=== PATIENT | female | born 1965 | race Hispanic/Latino ===

== ENCOUNTER 2017-10-19 07:18 | Emergency (ER) | payer OTHER ==
[2017-10-19 07:58] LABS: Bilirubin Small (Negative); Blood, Urine Small (Negative); Glucose, Urine (Dipstick) Negative (Negative); Leukocyte Moderate (Negative); Nitrite Positive (Negative); Protein, Urine (Dipstick) 100 mg/dL (Neg-Trace); pH, Urine 5.5 (5.0-9.0)
[2017-10-19 08:05] LABS: Clarity Hazy (Clear)
[2017-10-19 08:07] LABS: Specific Gravity, Urine 1.027 (1.002-1.036)
[2017-10-19 08:08] LABS: Bacteria/HPF 4+ HPF (None Seen); Hyaline Casts/LPF NONE SEEN LPF (0-3 Hyaline); Renal Epithelial None Seen HPF (0-3); Transitional Epithelial 0-3 HPF (0-3); Yeast-All Forms 2+ HPF (None Seen)
[2017-10-19 08:09] LABS: Pregnancy Test - Urine (BHCG) Negative (Negative); Pregu Control Background? CLEAR/WHITE (CLR/WHITE); Pregu Control Bar Appear? YES (CONTROL BAR); Specific Gravity 1.027 (1.002-1.036)
[2017-10-19 08:58] LABS: #Eosinphils 0.1 thou/uL (0.0-0.7); #Monocytes 0.3 thou/uL (0.11-0.59); #Neutrophils 7.3 thou/uL (1.40-6.50); %Basophils 0.1 % (0.0-1.0); %Eosinophils 1.6 % (0.0-10.0); %Lymphocytes 11.7 % (21.0-51.0); %Monocytes 3.5 % (0.0-10.0); %Neutrophils 83.2 % (42.0-75.0); Mean Corpuscular HGB CONC 33.9 g/dL (32.0-36.0); Mean Corpuscular Hemoglobin 30.7 pg (27.0-31.0); Mean Corpuscular Volume 90.8 fL (78.0-98.0); Mean Platelet Volume 7.5 fL (7.4-10.4); Platelet Count 186 thou/uL (130-400); RBC Distribution Width 12.6 % (11.5-14.5); Red Blood Cell (RBC) Count 4.23 mill/uL (4.20-5.40); White Blood Cell (WBC) Count 8.8 thou/uL (4.8-10.8)
[2017-10-19] MEDS ORDERED: cefTRIAXone\\ROCEPHIN 1 GM VIAL ONE (09:10)
[2017-10-19 09:23] LABS: CKMB 0.4 ng/mL (0-6.6); Troponin I Less than 0.010 ng/mL (< 0.028)
[2017-10-19 10:35] LABS: Anion Gap 15 mmol/L (10-20); BUN (Urea Nitrogen) 10 mg/dL (9.8-20.1); Calc. Creatinine Clearance 0 mL/min (70-130); Calcium 9.6 mg/dL (7.8-10.44); Carbon Dioxide 23 mmol/L (22-29); Chloride 103 mmol/L (98-107); Estimated GFR-MDRD Greater than 90; Glucose 255 mg/dL (70-105); Potassium 3.8 mmol/L (3.5-5.1); Sodium 137 mmol/L (136-145)
== END 2017-10-19 11:40 | disposition home or self-care (01) ==
LOC: ERS 07:18
DX: R31.9 Hematuria, unspecified (principal); R30.0 Dysuria; M54.9 Dorsalgia, unspecified; E11.65 Type 2 diabetes mellitus with hyperglycemia; J45.909 Unspecified asthma, uncomplicated; Z79.4 Long term (current) use of insulin
CPT/HCPCS: 36415; 80048; 81003; 81015; 81025; 82553; 84484; 85025; 87077; 87086; 96361; 96374; J0696

== ENCOUNTER 2017-10-21 11:33 | Outpatient (CLI) | payer OTHER | END 2017-10-21 11:34 | disposition home or self-care (01) | LOC: LABBT 11:33 | PROVIDERS: ATTEND Specialist | DX: Z01.812 Encounter for preprocedural laboratory examination (principal); K43.9 Ventral hernia without obstruction or gangrene ==

== ENCOUNTER 2017-10-22 07:51 | Day surgery (SDC) | payer OTHER ==
[2017-10-21 12:18] VITALS: BMI 45.0
[2017-10-22] MEDS ORDERED: Ketorolac Tromethamine 30 MG/ML VIAL ONE (08:45)
[2017-10-22] MEDS ORDERED: Sodium Chloride 0.9% 100 ML ONE (08:46)
[2017-10-22] MEDS ORDERED: CEFAZOLIN 1 GM VIAL ONE (08:46)
[2017-10-22] MEDS ORDERED: Insulin Regular 300 UNITS/3 ML VIAL ONE (09:04)
[2017-10-22] MEDS ORDERED: HYDROmorphone 0.5 MG/0.5 ML SYRINGE ONE ×2 (09:42→09:43)
[2017-10-22] MEDS ORDERED: Fentanyl 100 MCG/2 ML VIAL ONE ×3 (09:42→15:20)
[2017-10-22] MEDS ORDERED: Bupivacaine/Epinephrine 0.25% 30 ML VIAL ONE (09:43)
[2017-10-22] MEDS ORDERED: PHENYLEPHRINE-NS 100 MCG/ML 10 ML SYRINGE ONE (12:45)
[2017-10-22] MEDS ORDERED: Ondansetron HCl/PF 4 MG/2 ML Vial ONE (12:45)
[2017-10-22] MEDS ORDERED: diphenhydrAMINE 50 MG/ML VIAL ONE (12:45)
[2017-10-22] MEDS ORDERED: Metoclopramide HCl 10 MG/2 ML VIAL ONE (12:45)
[2017-10-22] MEDS ORDERED: PROPOFOL 200 MG/20 ML VIAL ONE (12:45)
[2017-10-22] MEDS ORDERED: ePHEDrine/0.9% NaCl/PF SYRINGE 50 mg/10 ml ONE (12:45)
[2017-10-22] MEDS ORDERED: Lidocaine 1% PF 5 ML VIAL ONE (12:45)
[2017-10-22] MEDS ORDERED: Glycopyrrolate 0.2 MG/ML 5 ML SYRINGE ONE (12:45)
[2017-10-22] MEDS ORDERED: Succinylcholine Chloride 20 MG/ML 10 ml SYRINGE FS ONE (12:45)
[2017-10-22] MEDS ORDERED: Morphine 4 MG/ML VIAL ONE (16:09)
[2017-10-22] MEDS ORDERED: Promethazine HCl 25 MG/ML VIAL ONE (17:26)
[2017-10-22] MEDS ORDERED: HYDROcodone/Acetaminophen 5/325 mg Tablet ONE (18:44)
--- NOTE | 2017-10-23 04:28 | OP ---
DATE OF PROCEDURE: 10/22/2017 PREOPERATIVE DIAGNOSES: 1. Ventral incisional hernia. 2. Morbid obesity. POSTOPERATIVE DIAGNOSES: 1. Ventral incisional hernia. 2. Morbid obesity. 3. Finding of 2 separate adjacent ventral incisional hernias. OPERATION PERFORMED: Robotic repair of 2 separate, adjacent ventral incisional hernias (total size o f defect is an 8 x 5 cm), using a 10 x 15 cm mesh patch. SURGEON: Kirit Matthews M.D. ANESTHESIA: General endotracheal. INDICATIONS: The patient is a morbidly obese 52-year-old female. Although I had recommende d weight loss prior to proceeding with surgery, due to concerns regarding her hernias, agreed to repa ir this although she has not lost weight. She understands the high risk of recurrence. DESCRIPTION OF OPERATION: Informed consent was obtained. The patient was taken to the operating pritesh m where general endotracheal anesthesia was obtained with the patient in supine position. Abdomen wa s prepped with ChloraPrep and draped in sterile fashion. Local anesthetic was infiltrated and a 12-m m right lateral abdominal incision was created through which a Veress needle was passed into the tracey toneal cavity and pneumoperitoneum established using carbon dioxide up to a pressure of 15 mmHg. A 1 2-mm trocar port was passed through this same incision. Laparoscopic camera was passed through this port. Under direct vision, I placed 2 additional 8 mm robotic ports, one in the right lower quadrant and one in the right upper quadrant. Examining the location of these, decided to try to place the r ight lower quadrant one further posterior on the abdomen due to concerns about the proximity of the p ort to her hernia. I therefore closed the skin on the anterior port site with a towel clip and place an 8 mm port posteriorly. Of note, the patient's short body habitus and morbid obesity makes it quite challenging to place port s in a fashion that give adequate distance between them and adequate laterality to approach the anter ior abdominal wall. There were dense adhesions to the anterior abdominal wall, worse on the right side of the abdomen luís n on the left. There were adhesions to the anterior abdomen, both in the obvious hernia defect super iorly and the hernia defect inferiorly. The adhesions were all carefully lysed with sharp dissection and electrocautery. The anterior abdominal wall was cleared of preperitoneal fat as well. I measured the two defects. The upper defect was about 4 x 4 cm. The lower defect appeared to be ab out 5 cm wide and was additionally a 4 cm. There was a bridge of viable fascia between these two are as. The upper hernia had a clear cut fascial defect with a hernia sac. The lower defect, while an o bvious hernia, did not have the neck of a hernia that we typically see. Nonetheless, I felt that bot h should be repaired in continuity. The hernias were closed using a running suture of #1 nonabsorbable Stratafix. This was run up and ba ck to produce to a double layer of suture. I obtained a 10 x 15 cm mesh patch and placed a couple of stay sutures of 0 Vicryl on this. It was t hen passed into the abdominal cavity. The two stay sutures were withdrawn through the midline abdomi nal wound and used to affix the mesh patch appropriately. There was difficulty during the operation with the port sliding out. I ended up having to replace th e camera port with a longer 12-mm balloon tipped port to keep it from coming out. I additionally had exchange the right lower quadrant port for an extra length robotic port. Even with the port placed as far posterior as possible, there was difficulty with the proximity of this port to the edge of the hernia defect and the mesh. The mesh was sewed circumferentially with a running suture of 3-0 Stratafix. I ended up using four s eparate sutures of the Stratafix and overlapped each one of them significantly. The mesh patch appea red to be well approximated circumferentially. I then placed 2 sutures of 3-0 Vicryl in the center o f the mesh patch to fix it to the anterior abdominal wall in this location. The fascial defect at the 12-mm port site was closed with 0 Vicryl suture using a GraNee needle. All ports and instruments removed under direct vision. Pneumoperitoneum was carefully evacuated. Quart er percent Marcaine with epinephrine was infiltrated at each port site. Skin edges approximated with 4-0 Monocryl subcuticular suture. Dermabond was placed externally. Due to her obesity, I did not f eel that an abdominal binder would help to provide support or compression on the abdominal wall. I t herefore did not place her on. She was taken to recovery room in stable condition. There have been negligible blood loss during the case and no complications.
== END 2017-10-22 19:05 | disposition home or self-care (01) ==
LOC: SDC 07:51
PROVIDERS: ATTEND Specialist
PROC: 0WUF4JZ Supplement Abdominal Wall with Synthetic Substitute, Percutaneous Endoscopic Approach (ICD-10-PCS; principal; 2017-10-22)
DX: K43.2 Incisional hernia without obstruction or gangrene (principal); E66.01 Morbid (severe) obesity due to excess calories; E11.9 Type 2 diabetes mellitus without complications; J44.9 Chronic obstructive pulmonary disease, unspecified; Z88.8 Allergy status to other drugs, medicaments and biological substances; Z88.5 Allergy status to narcotic agent; Z88.1 Allergy status to other antibiotic agents; Z79.899 Other long term (current) drug therapy; Z68.42 Body mass index [BMI] 45.0-49.9, adult
CPT/HCPCS: 36416; 96374; 96375; J0131; J0690; J1170; J1815; J1885; J2270; J2550; J3010; J7050

== ENCOUNTER 2018-07-17 09:44 | Outpatient (CLI) | payer OTHER ==
--- NOTE | 2018-07-17 11:17 | RAD ---
PA AND LATERAL VIEWS CHEST: Date: 07/17/18 HISTORY: Bronchitis, cough, flu. FINDINGS: The cardiomediastinum is normal. The lungs are well expanded without focal areas of consolidation, pn eumothoraces, or pleural effusions. There are degenerative changes in the spine. IMPRESSION: No radiographic evidence of acute cardiopulmonary process. POS: C
== END 2018-07-17 09:45 | disposition home or self-care (01) ==
LOC: BICRAD 09:44
PROVIDERS: ATTEND Family Medicine
DX: J40 Bronchitis, not specified as acute or chronic (principal)
CPT/HCPCS: 71046

== ENCOUNTER 2018-07-18 12:51 | Outpatient (CLI) | payer OTHER ==
--- NOTE | 2018-08-06 15:52 | MMO ---
Bilateral MAMMO Bilat Screen [facility]. CLINICAL HISTORY: Patient is 52 years old and is seen for screening. The patient has the following family history of breast cancer: paternal grandmother, great. The patient has no personal history of cancer. VIEWS: The views performed were: bilateral craniocaudal with tomosynthesis and bilateral mediolateral oblique with tomosynthesis. FILMS COMPARED: The present examination has been compared to prior imaging studies performed at [facility] on 06/18/2003, 08/21/2005, 08/26/2006, 02/17/2008, 07/13/2009, 08/21/2010, 08/23/2011, 09/03/2011, 03/10/2012, 06/08/2014, 06/04/2015, 06/05/2016 and 08/02/2017. MAMMOGRAM FINDINGS: The breasts are almost entirely fat. There are no suspicious masses, suspicious calcifications, or new areas of architectural distortion. IMPRESSION: THERE IS NO MAMMOGRAPHIC EVIDENCE OF MALIGNANCY. A ROUTINE FOLLOW-UP MAMMOGRAM IN 1 YEAR IS RECOMMENDED. THE RESULTS OF THIS EXAM WERE SENT TO THE PATIENT. ACR BI-RADS Category 1 - Negative MAMMOGRAPHY NOTE: 1. A negative mammogram report should not delay a biopsy if a dominant of clinically suspicious mass is present. 2. Approximately 10% to 15% of breast cancers are not detected by mammography. 3. Adenosis and dense breasts may obscure an underlying neoplasm.
== END 2018-07-18 12:52 | disposition home or self-care (01) ==
LOC: BICMAMMO 12:51
PROVIDERS: ATTEND Family Medicine
DX: Z12.31 Encounter for screening mammogram for malignant neoplasm of breast (principal); Z80.3 Family history of malignant neoplasm of breast
CPT/HCPCS: 77063; 77067

== ENCOUNTER 2019-04-28 19:31 | Emergency (ER) | payer OTHER, SELFPAY ==
[2019-04-28] MEDS ORDERED: Famotidine 20 MG TAB ONE (20:08)
[2019-04-28] MEDS ORDERED: diphenhydrAMINE 25 MG CAP ONE (20:08)
[2019-04-28] MEDS ORDERED: Dexamethasone 4 MG TAB ONE (20:08)
== END 2019-04-28 20:18 | disposition home or self-care (01) ==
LOC: ERS 19:31
DX: T78.40XA Allergy, unspecified, initial encounter (principal); E11.9 Type 2 diabetes mellitus without complications; J45.909 Unspecified asthma, uncomplicated; Z79.899 Other long term (current) drug therapy; Z79.4 Long term (current) use of insulin; Z79.51 Long term (current) use of inhaled steroids
CPT/HCPCS: 99283; J8540; Q0163

== ENCOUNTER 2022-02-07 19:04 | Emergency (ER) | payer OTHER ==
[2022-02-07] MEDS ORDERED: Orphenadrine Citrate 60 MG/2 ML VIAL IM SCH (21:30)
[2022-02-07] MEDS ORDERED: Orphenadrine Citrate 60 MG/2 ML VIAL ONE (21:47)
== END 2022-02-07 22:54 | disposition home or self-care (01) ==
LOC: ERS 19:04
DX: M54.31 Sciatica, right side (principal); E11.9 Type 2 diabetes mellitus without complications
CPT/HCPCS: 72170; 96372; J2360

== ENCOUNTER 2024-12-02 22:41 | Emergency (ER) | payer BC ==
[2024-12-02] MEDS ORDERED: Orphenadrine Citrate 60 MG/2 ML VIAL ONE (23:29)
== END 2024-12-03 01:25 | disposition home or self-care (01) ==
LOC: ERS 22:41
DX: M25.551 Pain in right hip (principal); E11.9 Type 2 diabetes mellitus without complications; Z86.711 Personal history of pulmonary embolism; Z86.718 Personal history of other venous thrombosis and embolism; Z79.899 Other long term (current) drug therapy; Z79.4 Long term (current) use of insulin
CPT/HCPCS: 96372; J2360

== ENCOUNTER 2024-12-26 14:13 | Emergency (ER) | payer BC ==
[2024-12-26 15:25] LABS: #Basophils 0.03 10x3/uL (0.0-0.2); #Eosinophils 0.23 10x3/uL (0.0-0.7); #Monocytes 0.33 10x3/uL (0.11-0.59); #Neutrophils 4.70 10x3/uL (1.40-6.50); %Basophils 0.5 % (0.0-1.0); %Eosinophils 3.8 % (0.0-10.0); %Lymphocytes 12.9 % (21.0-51.0); %Monocytes 5.4 % (0.0-10.0); %Neutrophils 76.6 % (42.0-75.0); Hematocrit 34.2 % (36.0-47.0); Hemoglobin 11.0 g/dL (12.0-16.0); Mean Corpuscular Hemoglobin 29.2 pg (27.0-31.0); Mean Corpuscular Volume 90.7 fL (78.0-98.0); Platelet Count 167 10x3/uL (130-400); Red Blood Cell (RBC) Count 3.77 mill/uL (4.20-5.40); White Blood Cell (WBC) Count 6.13 10x3/uL (4.8-10.8)
[2024-12-26 15:42] LABS: ALT (SGPT) 12 U/L (Less than 34); AST (SGOT) 30 U/L (11-34); Albumin 3.3 g/dL (3.1-4.5); Alkaline Phosphatase 111 U/L (40-110); Anion Gap 14 mmol/L (10-20); BUN (Urea Nitrogen) 17 mg/dL (9.8-20.1); Bilirubin, Total 0.6 mg/dL (0.3-1.2); Calc. Creatinine Clearance 0 mL/min (70-130); Calcium 9.8 mg/dL (7.8-10.44); Carbon Dioxide 24 mmol/L (23-31); Chloride 105 mmol/L (98-107); Globulin 3.2 g/dL (2.4-3.5); Glucose 72 mg/dL (80-115); Lipase 27 U/L (8-78); Potassium 3.8 mmol/L (3.5-5.1); Sodium 139 mmol/L (136-145)
[2024-12-26] MEDS ORDERED: Droperidol 5 MG/2 ML VIAL ONE (15:54)
[2024-12-26 18:51] LABS: Bacteria/HPF None Seen HPF (None Seen); CAUTI Indications for Culture Pelvic or flank pain; Glucose, Urine (Dipstick) Normal (Negative); Leukocyte Negative Leu/uL (Negative); Protein, Urine (Dipstick) Negative (Neg-Trace); RBC/HPF 0-3 HPF (0-3); WBC/HPF 0-3 HPF (0-3)
[2024-12-26 18:52] LABS: Specific Gravity, Urine Greater than 1.050 (1.002-1.036)
[2024-12-26 18:53] LABS: Urine Culture Reflex No No
== END 2024-12-26 18:55 | disposition home or self-care (01) ==
LOC: ERS 14:13
DX: R19.00 Intra-abdominal and pelvic swelling, mass and lump, unspecified site (principal); M25.551 Pain in right hip; E11.9 Type 2 diabetes mellitus without complications; E66.9 Obesity, unspecified; G89.29 Other chronic pain; Z86.718 Personal history of other venous thrombosis and embolism; Z79.4 Long term (current) use of insulin; Z79.899 Other long term (current) drug therapy
CPT/HCPCS: 36415; 70491; 71260; 74177; 80053; 81001; 83605; 83690; 85025; 96374; 96375; J1790; J2270; J3010